=== PATIENT | male | born 1975 | race Caucasian/White ===

== ENCOUNTER 2018-06-11 20:46 | Emergency (ER) | payer BC, OTHER ==
[2018-06-11] MEDS ORDERED: Ondansetron 4 MG/2 ML SDV IVPUSH PRN (21:00)
--- NOTE | 2018-06-11 21:07 | EDM.PDOC ---
ED HPI GENERAL MEDICAL PROBLEM - General Chief Complaint: Gastrointestinal Problem Stated Complaint: Food in [place] Time Seen by Provider: 06/11/18 20:50 Source of Information: Reports: Patient History Limitations: Reports: No Limitations - History of Present Illness INITIAL COMMENTS - FREE TEXT/NARRATIVE: Pt comes in to the emergency department with complaint of piece of steak stuck in his lower esophagus. Patient states that he was eating steak this evening when he swallowed he noticed that was very challenging and began to cough and try to vomit. Pt presented to the Emergency department right away. Pt denies any SOB but is unable to swallow his spit for he vomits it back up. Onset: Sudden Quality: Reports: Other Improves with: Reports: None Worsens with: Reports: None Associated Symptoms: Reports: No Other Symptoms - Related Data Allergies Allergy/AdvReac Type Severity Reaction Status Date / Time No Known Allergies Allergy Verified 06/11/18 20:57 ED ROS GENERAL - Review of Systems Review Of Systems: See Below Constitutional: Reports: No Symptoms HEENT: Reports: No Symptoms Respiratory: Reports: No Symptoms Cardiovascular: Reports: No Symptoms GI/Abdominal: Reports: Nausea, Vomiting : Reports: No Symptoms Musculoskeletal: Reports: No Symptoms Skin: Reports: No Symptoms Neurological: Reports: No Symptoms Psychiatric: Reports: No Symptoms Hematologic/Lymphatic: Reports: No Symptoms Immunologic: Reports: No Symptoms ED EXAM, GENERAL - Physical Exam Exam: See Below Exam Limited By: No Limitations General Appearance: Alert, Anxious, Moderate Distress Eye Exam: Bilateral Eye: EOMI, PERRL Nose: Normal Inspection, Normal Mucosa Throat/Mouth: Normal Inspection, Normal Lips, Normal Gums, Normal Voice, No Airway Compromise Head: Atraumatic, Normocephalic Neck: Normal Inspection, Supple, Non-Tender, Full Range of Motion Respiratory/Chest: No Respiratory Distress, Lungs Clear, Normal Breath Sounds, No Accessory Muscle Use, Chest Non-Tender Cardiovascular: Normal Peripheral Pulses GI/Abdominal: Normal Bowel Sounds, Soft, Non-Tender, No Distention, Other (pain epigastrim area. unable to hold down secretions becomes nauseated ) Back Exam: Normal Inspection, Full Range of Motion Extremities: Normal Inspection, Normal Range of Motion, Non-Tender, No Pedal Edema, Normal Capillary Refill Neurological: Alert, Oriented, Normal Gait Psychiatric: Normal Affect, Normal Mood Skin Exam: Warm, Intact, Normal Color, Diaphoretic Course - Orders/Labs/Meds Meds: Medications Discontinued Medications Generic Name Dose Route Start Last Admin Trade Name Freq PRN Reason Stop Dose Admin Glucagon 1 mg 06/11/18 20:59 06/11/18 21:11 Glucagen IV 06/11/18 21:00 1 mg ONETIME ONE Administration Ondansetron HCl 4 mg 06/11/18 21:00 Zofran IVPUSH Q8H PRN Nausea Ondansetron HCl 4 mg 06/11/18 21:05 06/11/18 21:10 Zofran IVPUSH 06/11/18 21:06 4 mg ONETIME ONE Administration Departure - Departure Time of Disposition: 21:18 Disposition: DC/[facility] 05 Condition: Fair Clinical Impression: Foreign body - Discharge Information *PRESCRIPTION DRUG MONITORING PROGRAM REVIEWED*: Not Applicable *COPY OF PRESCRIPTION DRUG MONITORING REPORT IN PATIENT JEEVAN: Not Applicable Instructions: Swallowed Foreign Body, Adult, Choking, Adult Referrals: PCP,None [Primary Care Provider] - Forms: ED Department Discharge Additional Instructions: 1. Pt will transfer directly to ER. If any complications arise during transport family is advised to call 911 for an intercept. Currently pt is not willing to be transferred via ambulance. 2. Pt is advised to avoid coughing or bearing down to dislodge foreign body. 3. All questions and concerns answered prior to discharge. 4. all questions and concerns answered. - Assessment/Plan Assessment:: 1. foreign body obstruction lower esophagus Plan: 1. Glucogon 1mg IV 2. Consult completed with Dr. Younger General Surgeon [place]. He recommends glucogon 1mg IV and transfer to ER for further evaluation and removal of foreign body 3. IV inserted 4. Zofran given for nausea and vomiting 5. Pt will transfer directly to ER. If any complications arise during transport family is advised to call 911 for an intercept. Currently pt is not willing to be transferred via ambulance. 6. Pt is advised to avoid coughing or bearing down to dislodge foreign body. 7. All questions and concerns answered prior to discharge.
[2018-06-11] MEDS: Ondansetron 4 MG/2 ML SDV IVPUSH ONE (21:10)
[2018-06-11] MEDS: Glucagon,Human Recombinant 1 MG Vial IV ONE (21:11)
== END 2018-06-11 21:19 | disposition short-term general hospital (02) ==
LOC: VM.ED 20:46
DX: T18.128A Food in esophagus causing other injury, initial encounter (principal); K29.70 Gastritis, unspecified, without bleeding
CPT/HCPCS: 96374; 96375; 99283; J1610; J2405

== ENCOUNTER 2022-12-21 14:20 | Emergency (ER) | payer OTHER ==
[2022-12-21] MEDS ORDERED: Ondansetron 4 MG/2 ML SDV ONE (14:28)
[2022-12-21] MEDS ORDERED: Sodium Chloride 0.9% 1,000 ML IV ONE (14:52)
[2022-12-21 15:21] LABS: CHLORIDE,CL 107 mmol/L (98-107); SODIUM,NA 142 mmol/L (136-145)
[2022-12-21 15:23] LABS: ANION GAP 9.8 mmol/L (5-15); ESTIMATED GFR 67 mL/min (>=60)
[2022-12-21] MEDS ORDERED: Ondansetron 4 MG/2 ML SDV IVPUSH ONE (19:18)
== END 2022-12-21 16:20 | disposition home or self-care (01) ==
LOC: VM.ED 14:20
DX: R55 Syncope and collapse (principal)
CPT/HCPCS: 36415; 71045; 80053; 84484; 85025; 93005; 96360; 99285; J2405; J7030; 93010; 99283